=== PATIENT | female | born 1995 | race African-American/Black ===

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

== ENCOUNTER 2018-05-19 13:24 | Inpatient (IN) | payer OTHER ==
--- NOTE | 2018-05-19 14:31 | PDOC ---
History of Present Illness - General Chief Complaint: Revisit, Lab Variance Stated Complaint: PCP SENT Time Seen by Provider: 05/19/18 14:30 History Source: Patient - History of Present Illness Initial Comments: 05/24/18 16:51 The patient is a 23 year old female with a PMH of rhabdomyolysis who presents to the ED after a CPK reading of 30,000 @ her PMD's office. Was being evaluated in her PMD's office for 1 week h/o body aches mostly on her R side including her torso and hips. H/o viral URI symptoms and dark urine. Denies any recent trauma or immobilization. States she was supposed to follow up with a truant officer after her last elevated CPK reading, however she never did so. The patient denies chest pain, shortness of breath, headache, dizziness, fever, chills, nausea, vomit, diarrhea and constipation. NKDA Surgical: none reported As per EMR, patient was evaluated in our ED in 2017 for B/L LE weakness, CPK reading of 30,096. Patient admitted to hospital for further evaluation, labs negative for Sickle Cell trait, elevated RUPAL. Past History - Past Medical History Allergies/Adverse Reactions: Allergies Allergy/AdvReac Type Severity Reaction Status Date / Time No Known Allergies Allergy Verified 05/19/18 13:33 Home Medications: Ambulatory Orders NK [No Known Home Medication] 05/20/16 COPD: No Other medical history: rhabdo - Suicide/Smoking/Psychosocial Hx Smoking History: Never smoked Hx Alcohol Use: No Drug/Substance Use Hx: No Review of Systems - Review of Systems Constitutional: No: Chills, Fever HEENTM: No: Recent change in vision, Hearing Loss Respiratory: No: Cough, Shortness of Breath Cardiac (ROS): No: Chest Pain, Lightheadedness, Palpitations, Syncope ABD/GI: No: Constipated, Diarrhea, Nausea, Vomiting : Yes: Other (dark colored urine) Musculoskeletal: Yes: Muscle Pain Neurological: No: Headache, Numbness, Paresthesia, Tingling, Weakness *Physical Exam - Vital Signs Last Vital Signs Temp Pulse Resp BP Pulse Ox 98.4 F 84 18 116/79 98 05/19/18 13:33 05/19/18 13:33 05/19/18 13:33 05/19/18 13:33 05/19/18 13:33 - Physical Exam General Appearance: Yes: Nourished, Appropriately Dressed HEENT: positive: Normal Voice, Hearing Grossly Normal Neck: positive: Trachea midline, Supple Respiratory/Chest: positive: Lungs Clear, Normal Breath Sounds Cardiovascular: positive: Regular Rate, S1, S2 Vascular Pulses: Dorsalis-Pedis (R): 2+, Doralis-Pedis (L): 2+ Gastrointestinal/Abdominal: positive: Normal Bowel Sounds, Soft Musculoskeletal: negative: CVA Tenderness (R), CVA Tenderness (L) Extremity: positive: Normal Capillary Refill, Normal Inspection Integumentary: positive: Normal Color, Dry, Warm Neurologic: positive: tar leveler II-XII NML intact, Fully Oriented, Alert Moderate Sedation - Procedure Monitoring Vital Signs: Procedure Monitoring Vital Signs Temperature 98.4 F 05/19/18 13:33 Pulse Rate 84 05/19/18 13:33 Respiratory Rate 18 05/19/18 13:33 Blood Pressure 116/79 05/19/18 13:33 O2 Sat by Pulse Oximetry (%) 98 05/19/18 13:33 ED Treatment Course - LABORATORY CBC & Chemistry Diagram: 05/24/18 09:00 05/24/18 09:00 Medical Decision Making - Medical Decision Making 05/24/18 17:03 23 year old female with PMH of rhabdomyolysis presents w/elevated CPK reading from PMD's office. VS unremarkable. Will order labs. Consults ordered prior to patient's arrival in ED. Patient discussed with Dr. Murray who was aware of patient. Patient admitted to inpatient medicine service for further evaluation. *DC/Admit/Observation/Transfer Diagnosis at time of Disposition: Rhabdomyolysis Qualifiers: Rhabdomyolysis type: non-traumatic Qualified Code(s): M62.82 - Rhabdomyolysis - Discharge Dispostion Condition at time of disposition: Fair Decision to Admit order: Yes - Referrals - Patient Instructions - Post Discharge Activity
[2018-05-19] MEDS ORDERED: SODIUM CHLORIDE 0.9% 500 ML INFUS.BAG IV ONE ×2 (14:32→19:21)
--- NOTE | 2018-05-19 15:21 | CONSULT ---
Consult Consult Specialty:: Nephrology Reason for Consultation:: rhabdo - History of Present Illness Chief Complaint: sent in from PMD for elevated CPK History of Present Illness: Pti s a 23year old female with pmhx of rhabdo wo was sent in from PMD for levated CPK. She presented to her primary for back and thigh pain. She was found to have a cpk of about 27,000. She did have a viral syndrome a week ago. She had a few drinks on Tuesday for her birthday. She denies blood in the urine. She denies shortness of breath. She denies flank pain. She denies nsaid use. She denies drug use. - History Source History Provided By: Patient, Medical Record - Past Medical History ...LMP: 05/09/16 Musculoskeletal: Yes: Other (rhabdo) - Past Surgical History Past Surgical History: Yes: None - Alcohol/Substance Use Hx Alcohol Use: No History of Substance Use: reports: None - Smoking History Smoking history: Never smoked - Social History Usual Living Arrangement: Alone ADL: Independent Occupation: college student History of Recent Travel: No Home Medications - Allergies Allergies/Adverse Reactions: Allergies Allergy/AdvReac Type Severity Reaction Status Date / Time No Known Allergies Allergy Verified 05/19/18 13:33 - Home Medications Home Medications: Ambulatory Orders NK [No Known Home Medication] 05/20/16 Family Disease History - Family Disease History Family Disease History: Other: Father (healthy), Mother (healthy) Review of Systems - Review of Systems Constitutional: reports: Malaise. denies: Chills, Fever Eyes: reports: No Symptoms HENT: reports: No Symptoms Neck: reports: No Symptoms Cardiovascular: reports: No Symptoms Respiratory: reports: No Symptoms Gastrointestinal: reports: No Symptoms Genitourinary: reports: No Symptoms Musculoskeletal: reports: Back Pain, Extremity Pain Neurological: reports: No Symptoms Endocrine: reports: No Symptoms Hematology/Lymphatic: reports: No Symptoms Psychiatric: reports: No Symptoms Physical Exam Vital Signs: Vital Signs Temperature 98.4 F 05/19/18 13:33 Pulse Rate 84 05/19/18 13:33 Respiratory Rate 18 05/19/18 13:33 Blood Pressure 116/79 05/19/18 13:33 O2 Sat by Pulse Oximetry (%) 98 05/19/18 13:33 Constitutional: Yes: Calm Eyes: Yes: Conjunctiva Clear HENT: Yes: Atraumatic Neck: Yes: Supple Cardiovascular: Yes: S1, S2 Respiratory: Yes: CTA Bilaterally Gastrointestinal: Yes: Normal Bowel Sounds, Soft Renal/: Yes: WNL Musculoskeletal: Yes: WNL Extremities: Yes: WNL Edema: No Neurological: Yes: Oriented Psychiatric: Yes: Oriented Labs: Laboratory Tests 05/21/16 05/21/16 05/22/16 00:17 06:15 07:25 Creatine Kinase 88921 H 70202 H 11845 H D IDLIP Screen DILIP Homogeneous Pattern 05/23/16 05/24/16 05/24/16 07:00 05:45 15:50 Creatine Kinase 72143 H D 75710 H DILIP Screen Positive H DILIP Homogeneous Pattern 1:80 06/03/16 07:25 Creatine Kinase 740 H D DILIP Screen DILIP Homogeneous Pattern Problem List - Problems (1) Hematuria, microscopic Code(s): R31.2 - OTHER MICROSCOPIC HEMATURIA * DO NOT USE * (2) Rhabdomyolysis Code(s): M62.82 - RHABDOMYOLYSIS (3) Transaminitis Code(s): R74.0 - NONSPEC ELEV OF LEVELS OF TRANSAMNS & LACTIC ACID DEHYDRGNSE Assessment/Plan Impression 1. rhabdomyolosis 2. microscopic hematuria 3. hx proteinuria 4. recent viral syndrome 5. hx transaminitis 6. hx of positive dilip Plan - check cmp - check cpk - send ua with micro - start fluids - cpk as outpt was 27k - rheum eval - discussed with medical team - monitor lytes and cpk closely
[2018-05-19 17:23] LABS: BASO % 0.2 % (0-2.0); EOS % 0.6 % (0-4.5); HEMATOCRIT 33.8 % (32.4-45.2); HEMOGLOBIN 11.8 GM/dL (10.7-15.3); LYMPH % 30.2 % (8-40); MCH 31.2 pg (25.7-33.7); MCHC 34.8 g/dl (32.0-36.0); MEAN CELL VOLUME 89.4 fl (80-96); MEAN PLT VOLUME 8.5 fl (7.5-11.1); PLATELET COUNT 283 K/MM3 (134-434); RBC 3.78 M/mm3 (3.60-5.2); RDW 13.7 % (11.6-15.6)
--- NOTE | 2018-05-19 17:25 | PDOC ---
Attending Attestation - HPI HPI: 05/19/18 17:46 The patient is a 23 year old female, with a significant PMH of rhabdomyolysis, who presents to the emergency department with elevated CPK lab readings. The patient endorses right sided muscle aches and dark colored urine for the past few days. The patient also states she has been having mild cold-like symptoms. The patient states her symptoms are similar to her prior presentation with rhabdomyolysis. The patient denies any recent injuries or trauma. The patient denies chest pain, shortness of breath, headache and dizziness. Denies fever, chills, nausea, vomit, diarrhea and constipation. Denies dysuria, frequency, urgency and hematuria. Allergies: NKA Documentation prepared by Saul Conklin, acting as senior medical billing specialist for Silke Martinez MD. - Physicial Exam PE: 05/19/18 17:46 GENERAL: The patient is in no acute distress. HEAD: Normal with no signs of trauma. EYES: PERRLA, EOMI, sclera anicteric, conjunctiva clear. ENT: Ears normal, nares patent, oropharynx clear without exudates. Moist mucous membranes. NECK: Normal range of motion, supple without lymphadenopathy, JVD, or masses. LUNGS: Breath sounds equal, clear to auscultation bilaterally. No wheezes, and no crackles. HEART:Regular rate and rhythm, normal S1 and S2 without murmur, rub or gallop. ABDOMEN: Soft, nontender, normoactive bowel sounds. No guarding, no rebound. No masses palpable. EXTREMITIES: Normal range of motion, no edema. No clubbing or cyanosis. No erythema, or tenderness. NEUROLOGICAL: Cranial nerves II through XII grossly intact. Normal speech. No focal neurological deficits. MUSCULOSKELETAL: Back non-tender to palpation, no CVA tenderness SKIN: Warm, Dry, normal turgor, no rashes or lesions noted. <Saul Conklin - Last Filed: 05/19/18 17:46> - Resident Resident Name: Kyra Sotelo - ED Attending Attestation I have performed the following: I have examined & evaluated the patient, The case was reviewed & discussed with the resident, I agree w/resident's findings & plan, Exceptions are as noted - Medical Decision Making 05/20/18 19:01 Labs pending IV fluids initiated based on outpatient labs Consults were called prior to this patient's arrival in the ER Pt admitted to Dr Murray 05/20/18 19:02 Laboratory Tests 05/19/18 05/19/18 17:00 17:04 WBC 5.0 Hgb 11.8 Hct 33.8 D Plt Count 283 Sodium 137 Potassium 4.2 Chloride 104 Carbon Dioxide 26 BUN 12 Creatinine 0.6 Random Glucose 76 CPK had to be added, it was not originally sent Will continue IV hydration <Silke Martinez - Last Filed: 05/20/18 19:04>
--- NOTE | 2018-05-19 17:49 | HP ---
Admitting History and Physical - Primary Care Physician PCP: Manuel Espinoza - Admission Chief Complaint: Rhabdomyolysis History of Present Illness: 23 year old female pmh of rhabdomyolysis presents with generalized muscle aches. Pt reports onset of aching pain 1 week ago. She describes the muscle ache is mostly from her hips to upper body/chest. Pt reports she had an URI on . Subsequently developed above symptoms. Pt reports she went out drinking 3 days ago, consumed 3-4 drinks which led her to feel worse. Pt therefore went to see her PCP, and outpt CPK level was found to be 30k. Of note, pt was admitted 05/2016 for similar presentation. At that time, no cause was found, pt was managed conservatively and improved. Sickle cell trait was neg, RUPAL elevated in 2017. Pt was advised to follow up with Rheum outpt however pt cannot recall following up. Otherwise, pt denies any chest pain, sob, lightheadedness, seizure, fever/chills, rash, abd pain, n/v/d, dysuria, dark urine, use of herbal supplements, use of illicit drugs, use of dietary supplements, recent trauma, excessive exercise, or recent travel. History Source: Patient, Medical Record Limitations to Obtaining History: No Limitations - Past Medical History ...: No Musculoskeletal: Yes: Other (rhabdomyolysis) - Past Surgical History Past Surgical History: Yes: None - Smoking History Smoking history: Never smoked Have you smoked in the past 12 months: No - Alcohol/Substance Use Hx Alcohol Use: No History of Substance Use: reports: None - Social History ADL: Independent Occupation: college student History of Recent Travel: No Home Medications - Allergies Allergies/Adverse Reactions: Allergies Allergy/AdvReac Type Severity Reaction Status Date / Time No Known Allergies Allergy Verified 05/19/18 13:33 - Home Medications Home Medications: Ambulatory Orders NK [No Known Home Medication] 05/20/16 Family Disease History - Family Disease History Family History: Unremarkable Review of Systems Findings/Remarks: as per hpi Physical Examination Vital Signs: Vital Signs Temperature 98.4 F 05/19/18 13:33 Pulse Rate 84 05/19/18 13:33 Respiratory Rate 18 05/19/18 13:33 Blood Pressure 116/79 05/19/18 13:33 O2 Sat by Pulse Oximetry (%) 98 05/19/18 13:33 Constitutional: Yes: Well Nourished, No Distress, Calm Cardiovascular: Yes: WNL, Regular Rate and Rhythm. No: Murmur Respiratory: Yes: WNL, Regular, CTA Bilaterally. No: Accessory Muscle Use, Tachypnea, Wheezes Gastrointestinal: Yes: WNL, Normal Bowel Sounds, Soft. No: Distention, Tenderness, Vomiting Renal/: Yes: WNL Extremities: Yes: WNL Edema: No Neurological: Yes: WNL, Alert, Oriented Psychiatric: Yes: WNL, Alert, Oriented Labs: CBC, BMP 05/19/18 17:00 Problem List - Problems (1) Rhabdomyolysis Assessment/Plan: non exertional/non traumatic idiopathic, similar episode last admission as well post URI r/o infectious, drug-induced, inflammatory blood/urine/nasopharyngeal cultures ordered EBV, coxsackie ab ordered RUPAL, hiv, tsh, carboxyhg ordered trop, ekg ordered urine na/cr/k, tox screen ordered muscle biopsy ordered NS 200ml/hr trend CPK rheum/nephrology consulted Code(s): M62.82 - RHABDOMYOLYSIS Qualifiers: Rhabdomyolysis type: non-traumatic Qualified Code(s): M62.82 - Rhabdomyolysis (2) Transaminitis Assessment/Plan: suspect reactive monitor trend Code(s): R74.0 - NONSPEC ELEV OF LEVELS OF TRANSAMNS & LACTIC ACID DEHYDRGNSE
[2018-05-19 17:55] LABS: ALBUMIN 3.7 g/dl (3.4-5.0); ALK PHOS 54 U/L (45-117); ANION GAP 6 MMOL/L (8-16); BILIRUBIN,TOTAL 0.3 mg/dL (0.2-1); BLOOD UREA NITROGEN 12 mg/dL (7-18); CALCIUM 9.3 mg/dL (8.5-10.1); CHLORIDE 104 mmol/L (98-107); CO2 26 mmol/L (21-32); CREATININE 0.6 mg/dL (0.55-1.3); GLUCOSE,RANDOM 76 mg/dL (74-106); POTASSIUM 4.2 mmol/L (3.5-5.1); SGOT/AST 215 U/L (15-37); SGPT/ALT 93 U/L (13-61); SODIUM 137 mmol/L (136-145)
[2018-05-19 19:48] LABS: ERYTHROCYTE SEDIMENTATION RATE 14 mm/hr (0-20)
[2018-05-19] MEDS: SODIUM CHLORIDE 1,000 ML IV SCH (20:01)
[2018-05-19] MEDS ORDERED: HEPARIN NA (PORCINE) 5,000 UNITS/ML 1ML VIAL SQ SCH (22:00)
[2018-05-20] MEDS: SODIUM CHLORIDE 1,000 ML IV SCH ×4 (00:25→17:27)
[2018-05-20 06:01] LABS: URINE APPEARANCE CLEAR; URINE BILIRUBIN NEGATIVE (<2.0 mg/dL); URINE COLOR STRAW; URINE GLUCOSE (UA) NEGATIVE (NEGATIVE); URINE KETONE NEGATIVE (NEGATIVE); URINE LEUK ESTERASE NEGATIVE (NEGATIVE); URINE NITRITE NEGATIVE (NEGATIVE); URINE PROTEIN NEGATIVE (NEGATIVE); URINE UROBILINOGEN NEGATIVE mg/dL (0.2-1.0)
[2018-05-20 06:20] LABS: COCAINE, UR NEGATIVE ng/ml (CUTOFF=300); METHADONE, UR NEGATIVE ng/ml (CUTOFF=300); OPIATES, URI NEGATIVE ng/ml (CUTOFF=300); PHENCYCLIDINE,URINE NEGATIVE ng/ml (CUTOFF=25); URINE AMPHETAMINES NEGATIVE ng/ml (CUTOFF=500); URINE BARBITURATES NEGATIVE ng/ml (CUTOFF=200); URINE BENZODIAZEPINES NEGATIVE ng/ml (CUTOFF=200)
[2018-05-20 08:35] LABS: BASO % 0.5 % (0-2.0); EOS % 1.6 % (0-4.5); HEMOGLOBIN 10.9 GM/dL (10.7-15.3); LYMPH % 47.7 % (8-40); MCH 30.8 pg (25.7-33.7); MCHC 34.2 g/dl (32.0-36.0); MEAN CELL VOLUME 89.9 fl (80-96); MEAN PLT VOLUME 8.7 fl (7.5-11.1); MONO % 8.5 % (3.8-10.2); NEUT % 41.7 % (42.8-82.8); PLATELET COUNT 275 K/MM3 (134-434); RBC 3.56 M/mm3 (3.60-5.2); RDW 13.7 % (11.6-15.6); WHITE BLOOD COUNT 3.2 K/mm3 (4.0-10.0)
--- NOTE | 2018-05-20 08:40 | EKG ---
Test Reason : Blood Pressure : / mmHG Vent. Rate : 059 BPM Atrial Rate : 059 BPM P-R Int : 130 ms QRS Dur : 090 ms QT Int : 412 ms P-R-T Axes : 048 078 067 degrees QTc Int : 407 ms SINUS BRADYCARDIA WITH SINUS ARRHYTHMIA OTHERWISE NORMAL ECG WHEN COMPARED WITH ECG OF 21-MAY-2016 03:10, NO SIGNIFICANT CHANGE WAS FOUND Confirmed by VERONICA TOBAR, NOMAN ([id number]) on 05/20/2018 8:40:39 AM Referred By: Confirmed By:NOMAN MARTIN MD
[2018-05-20 09:04] LABS: ALBUMIN 3.4 g/dl (3.4-5.0); ALK PHOS 50 U/L (45-117); ANION GAP 5 MMOL/L (8-16); BILIRUBIN,TOTAL 0.3 mg/dL (0.2-1); BLOOD UREA NITROGEN 8 mg/dL (7-18); CALCIUM 8.7 mg/dL (8.5-10.1); CHLORIDE 109 mmol/L (98-107); CO2 26 mmol/L (21-32); CREATININE 0.6 mg/dL (0.55-1.3); GLUCOSE,RANDOM 80 mg/dL (74-106); MAGNESIUM 1.8 mg/dL (1.8-2.4); PHOSPHOROUS 3.7 mg/dL (2.5-4.9); POTASSIUM 4.4 mmol/L (3.5-5.1); SGOT/AST 182 U/L (15-37); SGPT/ALT 86 U/L (13-61); SODIUM 140 mmol/L (136-145); TOT PROT 6.4 g/dl (6.4-8.2)
--- NOTE | 2018-05-20 11:35 | PN ---
Progress Note (short form) - Note Progress Note: RENAL Pt has rhabdo after experiencing some muscle pain. She denies drug use, medication use or strenuous exercise. Also denies any family or personal history of autoimmune disease She feels well today and is making a lot of urine Last Vital Signs Temp Pulse Resp BP Pulse Ox 98.0 F 83 18 105/57 L 98 05/20/18 05:57 05/20/18 10:00 05/20/18 10:00 05/20/18 10:00 05/20/18 06:00 lungs clear cvs s1s2 rr abd soft ext no edema neuro a+ox3 CBC, BMP 05/20/18 07:45 05/20/18 07:45 Current Medications Generic Name Dose Route Start Last Admin Trade Name Freq PRN Reason Stop Dose Admin Sodium Chloride 1,000 mls @ 200 mls/hr 05/19/18 17:45 05/20/18 06:21 Normal Saline - IV 200 mls/hr ASDIR FABRICIO Administration Impression rhabdomyolosis of unknown etiology recent viral syndrome hx transaminitis likely due to rhabdo hx of positive dilip Plan rheum eval possible muscle biopsy anti nathaniel, aldolase MV
[2018-05-20 13:56] LABS: URINE POTASSIUM 26.7 MMOL/L (25-125)
--- NOTE | 2018-05-20 14:22 | PN ---
Progress Note, Physician Chief Complaint: Miss Castellanos is still having muscle aches, unchanged. No cp, sob, n/v. - Current Medication List Current Medications: Active Medications Sodium Chloride (Normal Saline -) 1,000 mls @ 200 mls/hr IV ASDIR FABRICIO Last Admin: 05/20/18 13:59 Dose: 200 mls/hr - Objective Vital Signs: Vital Signs Temperature 36.7 C 05/20/18 05:57 Pulse Rate 83 05/20/18 10:00 Respiratory Rate 18 05/20/18 10:00 Blood Pressure 105/57 L 05/20/18 10:00 O2 Sat by Pulse Oximetry (%) 98 05/20/18 06:00 Constitutional: Yes: No Distress, Calm, Thin Cardiovascular: Yes: Regular Rate and Rhythm. No: Gallop, Murmur, Rub Respiratory: Yes: Regular, CTA Bilaterally. No: Rales, Rhonchi, Wheezes Gastrointestinal: Yes: Normal Bowel Sounds, Soft. No: Distention, Tenderness Extremities: Yes: WNL Edema: No Labs: CBC, BMP 05/20/18 07:45 05/20/18 07:45 Problem List - Problems (1) Rhabdomyolysis Assessment/Plan: -appreciate nephrology assistance -rheumatology consulted -continue IVF -daily CK, improving Code(s): M62.82 - RHABDOMYOLYSIS Qualifiers: Rhabdomyolysis type: non-traumatic Qualified Code(s): M62.82 - Rhabdomyolysis (2) Transaminitis Assessment/Plan: -improving -monitor -will recheck hepatitis panel, has Hep B immunity but will check for Hep A and C Code(s): R74.0 - NONSPEC ELEV OF LEVELS OF TRANSAMNS & LACTIC ACID DEHYDRGNSE
--- NOTE | 2018-05-20 22:10 | CONSULT ---
Consult Consult Specialty:: Rheumatology - History of Present Illness History of Present Illness: 23 year old female admitted with Rhabdomyolysis. On 05/20/16 the patient was admitted with Rhabdomyolysis without any apparent triggering factor. The peak CPK was 60,780. On this occasion she reports that on 05/09/18 she developed an URI. On 05/15/18 she had 3 or 4 hard liquor drinks. She then developed myalia in thighs followed by myalgia in shoulders and back. Laboratory work-up by her PCP revealed CK of 30,000. Since admission she had only slight improvement. Laboratory work-up on admission revealed WBC 5.0 (today 3.2), ESR 14, CK >68912 (today 18,700). ASt 215 and ALT 93. SMA-7 and urinalysis were normal. On the previous admission RUPAL was 1:80, Anti-DNAds, anti-Sm, anti-[employer] MANAGER and transglutaminase Ab were all negative. IgG4 was normal (17) myalgia and elevated CPK. HPI. The patient reports a 1 week history of myalgia in thighs, mainly in anterior aspect and related to activity. The pain was progressive and later on she developed mild pain in arms. She denies triggering factors such as trauma, exercise, medications or drugs. She denies arthralgia, skin rash, oral ulcers , shortness of breath, cough, abdominal pain or fever. She was found to have an elevated CPK by her PCP and was referred for admission. In the hospital [place] [address] [place] [address]. Creatinine was 0.5, AST 169 and ALT 49. UA on admission had protein 1+ and blood 1+ and on 05/24: blood 3+. - Past Medical History ...LMP: 05/09/16 ...: No Musculoskeletal: Yes: Other (rhabdomyolysis) - Past Surgical History Past Surgical History: Yes: None - Alcohol/Substance Use Hx Alcohol Use: No History of Substance Use: reports: None - Smoking History Smoking history: Never smoked Have you smoked in the past 12 months: No - Social History Usual Living Arrangement: Alone ADL: Independent Occupation: college student History of Recent Travel: No Home Medications - Allergies Allergies/Adverse Reactions: Allergies Allergy/AdvReac Type Severity Reaction Status Date / Time No Known Allergies Allergy Verified 05/19/18 13:33 - Home Medications Home Medications: Ambulatory Orders NK [No Known Home Medication] 05/20/16 Family Disease History - Family Disease History Family Disease History: Other: Father (healthy), Mother (healthy) Review of Systems - Review of Systems Constitutional: reports: No Symptoms Eyes: reports: No Symptoms HENT: reports: No Symptoms Neck: reports: No Symptoms Cardiovascular: reports: No Symptoms Respiratory: reports: No Symptoms Gastrointestinal: reports: No Symptoms Genitourinary: reports: No Symptoms Musculoskeletal: reports: Other (See HPI) Physical Exam Vital Signs: Vital Signs Temperature 99.1 F 05/20/18 18:00 Pulse Rate 73 05/20/18 18:00 Respiratory Rate 20 05/20/18 18:00 Blood Pressure 101/54 L 05/20/18 18:00 O2 Sat by Pulse Oximetry (%) 98 05/20/18 06:00 Constitutional: Yes: No Distress Eyes: Yes: WNL HENT: Yes: WNL Neck: Yes: WNL Cardiovascular: Yes: WNL Respiratory: Yes: WNL Gastrointestinal: Yes: WNL Musculoskeletal: Yes: Other (No active joints. Muscle strength was normal and no muscle tenderness.) Labs: CBC, BMP 05/20/18 07:45 05/20/18 07:45 Laboratory Tests 05/19/18 05/19/18 05/20/18 17:00 17:04 00:46 ESR 14 Calcium 9.3 Phosphorus Magnesium Total Bilirubin 0.3 AST 215 H ALT 93 H Alkaline Phosphatase 54 Creatine Kinase > 34363 H C-Reactive Protein < 0.3 TSH 0.66 Urine Color Straw Urine Appearance Clear Urine pH 7.0 Ur Specific [place] 1.010 Urine Protein Negative Urine Glucose (UA) Negative Urine Ketones Negative Urine Blood Negative Urine Nitrite Negative Urine Bilirubin Negative Urine Urobilinogen Negative Ur Leukocyte Esterase Negative 05/20/18 05/20/18 07:45 07:45 ESR Calcium 8.7 Phosphorus 3.7 Magnesium 1.8 Total Bilirubin 0.3 AST 182 H ALT 86 H Alkaline Phosphatase Creatine Kinase 06705 H C-Reactive Protein TSH Urine Color Urine Appearance Urine pH Ur Specific [place] Urine Protein Urine Glucose (UA) Urine Ketones Urine Blood Urine Nitrite Urine Bilirubin Urine Urobilinogen Ur Leukocyte Esterase Problem List - Problems (1) Rhabdomyolysis Assessment/Plan: Recurrent Rhabdomyolysis. Both episodes happened few days after her birthday. On this occasion the patient reports having few alcoholic drinks. A possibility is that alcohol consumption triggered the disease. No obvious other triggering factors. Plan: Continue conservative treatment. In the future avoid drinking alcohol. Code(s): M62.82 - RHABDOMYOLYSIS Qualifiers: Rhabdomyolysis type: non-traumatic Qualified Code(s): M62.82 - Rhabdomyolysis
[2018-05-21 09:19] LABS: BASO % 0.6 % (0-2.0); EOS % 3.4 % (0-4.5); HEMATOCRIT 30.2 % (32.4-45.2); HEMOGLOBIN 10.3 GM/dL (10.7-15.3); LYMPH % 39.7 % (8-40); MCH 30.9 pg (25.7-33.7); MCHC 34.3 g/dl (32.0-36.0); MEAN CELL VOLUME 90.2 fl (80-96); MONO % 7.8 % (3.8-10.2); NEUT % 48.5 % (42.8-82.8); PLATELET COUNT 275 K/MM3 (134-434); RBC 3.34 M/mm3 (3.60-5.2); RDW 13.8 % (11.6-15.6); WHITE BLOOD COUNT 3.7 K/mm3 (4.0-10.0)
[2018-05-21] MEDS: SODIUM CHLORIDE 1,000 ML IV SCH ×3 (09:24→21:38)
[2018-05-21 09:46] LABS: ALBUMIN 3.1 g/dl (3.4-5.0); BILIRUBIN,DIRECT 0.1 mg/dL (0.0-0.2); BILIRUBIN,TOTAL 0.5 mg/dL (0.2-1); TOT PROT 5.7 g/dl (6.4-8.2)
[2018-05-21 10:15] LABS: ANION GAP 7 MMOL/L (8-16); BLOOD UREA NITROGEN 8 mg/dL (7-18); CALCIUM 8.4 mg/dL (8.5-10.1); CHLORIDE 111 mmol/L (98-107); CO2 24 mmol/L (21-32); CREATININE 0.6 mg/dL (0.55-1.3); GLUCOSE,RANDOM 110 mg/dL (74-106); MAGNESIUM 1.9 mg/dL (1.8-2.4); PHOSPHOROUS 3.6 mg/dL (2.5-4.9); POTASSIUM 3.7 mmol/L (3.5-5.1); SODIUM 142 mmol/L (136-145)
--- NOTE | 2018-05-21 11:45 | PN ---
Progress Note (short form) - Note Progress Note: RENAL no new complaints Rhabdo occured after drinking for her birthday Last Vital Signs Temp Pulse Resp BP Pulse Ox 97.9 F 88 20 98/52 L 95 05/21/18 11:00 05/21/18 11:00 05/21/18 11:00 05/21/18 11:00 05/21/18 09:00 lungs clear cvs s1s2 rr abd soft ext no edema neuro a+ox3 Current Medications Generic Name Dose Route Start Last Admin Trade Name Freq PRN Reason Stop Dose Admin Sodium Chloride 1,000 mls @ 200 mls/hr 05/19/18 17:45 05/21/18 09:24 Normal Saline - IV 200 mls/hr ASDIR FABRICIO Administration CBC, BMP 05/21/18 08:30 05/21/18 08:30 Impression rhabdomyolosis of unknown etiology perhaps related to alcohol recent viral syndrome hx transaminitis likely due to rhabdo hx of positive dilip Plan rheum eval noted would do muscle biopsy echocardiogram MV
--- NOTE | 2018-05-21 12:16 | PN ---
Progress Note, Physician Chief Complaint: Miss Castellanos says her muscle aches are improving. No cp, sob, n/v. - Current Medication List Current Medications: Active Medications Sodium Chloride (Normal Saline -) 1,000 mls @ 200 mls/hr IV ASDIR FABRICIO Last Admin: 05/21/18 09:24 Dose: 200 mls/hr - Objective Vital Signs: Vital Signs Temperature 36.6 C 05/21/18 11:00 Pulse Rate 88 05/21/18 11:00 Respiratory Rate 20 05/21/18 11:00 Blood Pressure 98/52 L 05/21/18 11:00 O2 Sat by Pulse Oximetry (%) 95 05/21/18 09:00 Constitutional: Yes: No Distress, Calm, Thin Cardiovascular: Yes: Regular Rate and Rhythm. No: Gallop, Murmur, Rub Respiratory: Yes: Regular, CTA Bilaterally. No: Rales, Rhonchi, Wheezes Gastrointestinal: Yes: Normal Bowel Sounds, Soft. No: Distention, Tenderness Extremities: Yes: WNL Edema: No Labs: CBC, BMP 05/21/18 08:30 05/21/18 08:30 Problem List - Problems (1) Rhabdomyolysis Code(s): M62.82 - RHABDOMYOLYSIS Qualifiers: Rhabdomyolysis type: non-traumatic Qualified Code(s): M62.82 - Rhabdomyolysis (2) Transaminitis Code(s): R74.0 - NONSPEC ELEV OF LEVELS OF TRANSAMNS & LACTIC ACID DEHYDRGNSE Assessment/Plan (1) Rhabdomyolysis Assessment/Plan: -case d/w nDr Borden -continue IVF, CPK improving -muscle biopsy ordered -ECHO ordered per nephrology recommendation -rheumatology note reviewed Code(s): M62.82 - RHABDOMYOLYSIS Qualifiers: Rhabdomyolysis type: non-traumatic Qualified Code(s): M62.82 - Rhabdomyolysis (2) Transaminitis Assessment/Plan: -improving -monitor -acute hepatitis panel pending Code(s): R74.0 - NONSPEC ELEV OF LEVELS OF TRANSAMNS & LACTIC ACID DEHYDRGNSE
[2018-05-22 07:24] LABS: BASO % 0.5 % (0-2.0); HEMATOCRIT 30.4 % (32.4-45.2); HEMOGLOBIN 9.6 GM/dL (10.7-15.3); MCHC 31.7 g/dl (32.0-36.0); MEAN CELL VOLUME 91.5 fl (80-96); MEAN PLT VOLUME 8.5 fl (7.5-11.1); MONO % 9.4 % (3.8-10.2); NEUT % 47.1 % (42.8-82.8); PLATELET COUNT 248 K/MM3 (134-434); RBC 3.32 M/mm3 (3.60-5.2); RDW 13.5 % (11.6-15.6); WHITE BLOOD COUNT 3.7 K/mm3 (4.0-10.0)
[2018-05-22] MEDS: SODIUM CHLORIDE 1,000 ML IV SCH ×2 (07:50→18:06)
[2018-05-22 09:18] LABS: ALK PHOS 42 U/L (45-117); ANION GAP 8 MMOL/L (8-16); BILIRUBIN,TOTAL 0.3 mg/dL (0.2-1); BLOOD UREA NITROGEN 6 mg/dL (7-18); CALCIUM 8.3 mg/dL (8.5-10.1); CHLORIDE 110 mmol/L (98-107); CO2 23 mmol/L (21-32); CREATININE 0.5 mg/dL (0.55-1.3); GLUCOSE,RANDOM 78 mg/dL (74-106); MAGNESIUM 1.8 mg/dL (1.8-2.4); PHOSPHOROUS 3.7 mg/dL (2.5-4.9); POTASSIUM 3.9 mmol/L (3.5-5.1); SGOT/AST 113 U/L (15-37); SGPT/ALT 82 U/L (13-61); SODIUM 141 mmol/L (136-145); TOT PROT 5.6 g/dl (6.4-8.2)
--- NOTE | 2018-05-22 10:25 | PN ---
Progress Note, Physician Chief Complaint: Pt lying in bed in no acute distress. Reports feeling better. denies any chest pain, sob, n/v/d - Current Medication List Current Medications: Active Medications Sodium Chloride (Normal Saline -) 1,000 mls @ 200 mls/hr IV ASDIR FABRICIO Last Admin: 05/21/18 21:38 Dose: 200 mls/hr - Objective Vital Signs: Vital Signs Temperature 98.6 F 05/22/18 06:42 Pulse Rate 66 05/22/18 06:42 Respiratory Rate 20 05/22/18 06:42 Blood Pressure 109/64 05/22/18 06:42 O2 Sat by Pulse Oximetry (%) 95 05/22/18 08:23 Constitutional: Yes: No Distress, Calm, Thin Cardiovascular: Yes: WNL, Regular Rate and Rhythm. No: Murmur Respiratory: Yes: WNL, Regular, CTA Bilaterally. No: Accessory Muscle Use, SOB , Tachypnea, Wheezes Gastrointestinal: Yes: WNL, Normal Bowel Sounds, Soft. No: Distention, Tenderness Genitourinary: Yes: WNL Musculoskeletal: Yes: WNL Extremities: Yes: WNL Edema: No Neurological: Yes: WNL, Alert, Oriented Psychiatric: Yes: WNL, Alert, Oriented Labs: CBC, BMP 05/22/18 06:45 05/22/18 06:45 Assessment/Plan (1) Rhabdomyolysis Assessment/Plan: recurrent, no identifiable cause possible 2/2 uri, alcohol intake CPK improving continue IVF muscle biopsy pending, surgery consulted echo pending rheum consult appreciated nephrology following Code(s): M62.82 - RHABDOMYOLYSIS Qualifiers: Rhabdomyolysis type: non-traumatic Qualified Code(s): M62.82 - Rhabdomyolysis (2) Transaminitis Assessment/Plan: improving acute hepatitis panel pending Code(s): R74.0 - NONSPEC ELEV OF LEVELS OF TRANSAMNS & LACTIC ACID DEHYDRGNSE
[2018-05-22 11:53] VITALS: BMI 19.1
--- NOTE | 2018-05-22 14:41 | ECHO ---
Name: FRANKLIN LOMELI Exam:Adult Echocardiogram Study Date: 05/22/2018 01:21 PM Age: 23 yrs Reason For Study: RHABDO Height: 65 in Weight: 115 lb BSA: 1.6 m2 MMode/2D Measurements & Calculations IVSd: 0.85 cm ACS: 1.9 cm LVIDd: 3.4 cm LVIDs: 2.3 cm LVPWd: 1.1 cm EDV(Teich): 47.2 ml ESV(Teich): 18.4 ml Doppler Measurements & Calculations TR max rupa: 203.8 cm/sec Med Peak E' Rupa: 10.9 cm/sec TR max P.0 mmHg Lat Peak E' Rupa: 10.1 cm/sec Procedure A complete two-dimensional transthoracic echocardiogram was performed (2D, M-mode, Doppler and color flow Doppler). Left Ventricle The left ventricle is normal in size. Left ventricular systolic function is normal. Ejection Fraction = 60- 65%. No regional wall motion abnormalities noted. Right Ventricle The right ventricle is normal size. The right ventricular systolic function is normal. RV systolic TD I is 14 cm/s. Atria The left atrial size is normal. Right atrial size is normal. Mitral Valve The mitral valve is normal in structure and function. There is mild mitral regurgitation. Tricuspid Valve The tricuspid valve is normal in structure and function. There is mild tricuspid regurgitation. Right ventricular systolic pressure is normal. Aortic Valve There is mild aortic sclerosis.;. No aortic regurgitation is present. Pulmonic Valve The pulmonic valve is not well visualized. Great Vessels The aortic root is normal size. Pericardium/Pleura There is no pericardial effusion. Interpretation Summary The left ventricle is normal in size. Left ventricular systolic function is normal. No regional wall motion abnormalities noted. Ejection Fraction = 60-65%. The right ventricular systolic function is normal. The left atrial size is normal. Right atrial size is normal. There is mild mitral regurgitation. There is mild tricuspid regurgitation. Right ventricular systolic pressure is normal. There is mild aortic sclerosis. There is no pericardial effusion. Previous study is not available for comparison Manoj Garcia MD 05/22/2018 02:41 PM
--- NOTE | 2018-05-22 14:57 | CONSULT ---
Consult Consult Specialty:: general surgery Reason for Consultation:: need muscle biopsy - History of Present Illness Chief Complaint: muscle weakness History of Present Illness: 23 yo female PMH rhabdomyolysis presents with generalized muscle aches. Her mother is present at the bedside with her. Pt reports onset of aching pain 1 week ago. She describes the muscle ache is mostly from her hips to upper body/ chest. Pt reports she had an URI on 05/09/18. Subsequently developed above symptoms. Pt reports she went out drinking 3 days ago, consumed 3-4 drinks which led her to feel worse. Pt therefore went to see her PCP, and outpt CPK level was found to be 30k. Of note, pt was admitted 05/2016 for similar presentation. At that time, no cause was found, pt was managed conservatively and improved. Sickle cell trait was neg, RUPAL elevated in 2017. Pt was advised to follow up with Rheum outpt however pt cannot recall following up. Otherwise, pt denies any chest pain, sob, lightheadedness, seizure, fever/chills, rash, abd pain, n/v/d, dysuria, dark urine, use of herbal supplements, use of illicit drugs, use of dietary supplements, recent trauma, excessive exercise, or recent travel. We were called to assist with obtaining a muscle biopsy. - History Source History Provided By: Patient, Medical Record Limitations to Obtaining History: No Limitations - Past Medical History ...LMP: 05/09/16 ...: No Musculoskeletal: Yes: Other (rhabdomyolysis) - Past Surgical History Past Surgical History: Yes: None - Alcohol/Substance Use Hx Alcohol Use: No History of Substance Use: reports: None - Smoking History Smoking history: Never smoked Have you smoked in the past 12 months: No - Social History Usual Living Arrangement: Alone ADL: Independent Occupation: college student History of Recent Travel: No Home Medications - Allergies Allergies/Adverse Reactions: Allergies Allergy/AdvReac Type Severity Reaction Status Date / Time No Known Allergies Allergy Verified 05/19/18 13:33 - Home Medications Home Medications: Ambulatory Orders NK [No Known Home Medication] 05/20/16 Family Disease History - Family Disease History Family Disease History: Other: Father (healthy), Mother (healthy) Review of Systems - Review of Systems Constitutional: denies: Chills, Fever Eyes: denies: Blind Spots, Recent Change in Vision HENT: denies: Difficult Swallowing, Throat Pain Neck: denies: Decreased ROM, Pain on Movement Cardiovascular: denies: Chest Pain, Palpitations Respiratory: denies: Cough, SOB Gastrointestinal: denies: Abdominal Pain, Nausea Genitourinary: denies: Discharge, Dysuria Breasts: reports: No Symptoms Reported. denies: Pain Musculoskeletal: reports: Extremity Pain, Muscle Weakness Integumentary: denies: Rash, Wound Neurological: denies: Seizure, Syncope Endocrine: denies: Unexplained Weight Gain, Unexplained Weight Loss Hematology/Lymphatic: denies: Easily Bruised, Excessive Bleeding Psychiatric: denies: Anxiety, Depression Physical Exam Vital Signs: Vital Signs Temperature 98.8 F 05/22/18 14:30 Pulse Rate 71 05/22/18 14:30 Respiratory Rate 05/22/18 09:40 Blood Pressure 113/70 05/22/18 14:30 O2 Sat by Pulse Oximetry (%) 95 05/22/18 08:23 Vital Signs Period Temp Pulse Resp BP Sys/Gary Pulse Ox Last 24 Hr 97.8 F-98.8 F 66-79 20-20 109-127/64-75 95-96 Constitutional: Yes: Well Nourished, No Distress, Calm, Thin Eyes: Yes: Conjunctiva Clear, EOM Intact HENT: Yes: Atraumatic, Normocephalic Neck: Yes: Supple, Trachea Midline Cardiovascular: Yes: Regular Rate and Rhythm, S1, S2 Respiratory: Yes: Regular, CTA Bilaterally Gastrointestinal: Yes: Normal Bowel Sounds, Soft. No: Tenderness ...Rectal Exam: Yes: Deferred Renal/: No: CVA Tenderness - Left, CVA Tenderness - Right Breast(s): No: Mass, Nipple Inversion Musculoskeletal: Yes: Muscle Weakness. No: Joint Stiffness, Joint Swelling, Muscle Pain Extremities: No: Cool, Cyanosis Edema: No Peripheral Pulses WNL: Yes Integumentary: No: Incision, Jaundice, Pressure Ulcer Neurological: Yes: Alert, Oriented Psychiatric: Yes: Alert, Oriented Labs: CBC, BMP 05/22/18 06:45 05/22/18 06:45 Problem List - Problems (1) Muscle weakness (generalized) Assessment/Plan: 23 yo female for a Left thigh muscle biopsy NPO and IVF hydration Discussed with patient risks, benefits and alternatives of aforementioned procedure, including but not limited to bleeding, infection, injury to adjacent structures, need for further procedures, ; alternatives include antibiotics, delayed or no surgery - risks of this include failure of nonoperative therapy, sepsis, recurrence, . Patient desires to proceed with operation - will take to OR for above. Informed consent signed for same. Code(s): M62.81 - MUSCLE WEAKNESS (GENERALIZED) (2) Hematuria, microscopic Code(s): R31.2 - OTHER MICROSCOPIC HEMATURIA * DO NOT USE * (3) Rhabdomyolysis Code(s): M62.82 - RHABDOMYOLYSIS Qualifiers: Rhabdomyolysis type: non-traumatic Qualified Code(s): M62.82 - Rhabdomyolysis (4) Transaminitis Code(s): R74.0 - NONSPEC ELEV OF LEVELS OF TRANSAMNS & LACTIC ACID DEHYDRGNSE
--- NOTE | 2018-05-22 17:12 | PN ---
Progress Note, Physician History of Present Illness: Pt seen and examined at bedside. She feels that muscle pain is improving. - Current Medication List Current Medications: Active Medications Sodium Chloride (Normal Saline -) 1,000 mls @ 200 mls/hr IV ASDIR FABRICIO Last Admin: 05/21/18 21:38 Dose: 200 mls/hr - Objective Vital Signs: Vital Signs Temperature 98.8 F 05/22/18 14:30 Pulse Rate 71 05/22/18 14:30 Respiratory Rate 20 05/22/18 09:40 Blood Pressure 113/70 05/22/18 14:30 O2 Sat by Pulse Oximetry (%) 95 05/22/18 08:23 Constitutional: Yes: Calm, Poor Hygeine HENT: Yes: Atraumatic Neck: Yes: Supple Cardiovascular: Yes: S1, S2 Gastrointestinal: Yes: Soft Genitourinary: Yes: WNL Musculoskeletal: Yes: Back Pain Edema: No Neurological: Yes: Oriented Psychiatric: Yes: Oriented Labs: CBC, BMP 05/22/18 06:45 05/22/18 06:45 Problem List - Problems (1) Hematuria, microscopic Code(s): R31.2 - OTHER MICROSCOPIC HEMATURIA * DO NOT USE * (2) Rhabdomyolysis Code(s): M62.82 - RHABDOMYOLYSIS Qualifiers: Rhabdomyolysis type: non-traumatic Qualified Code(s): M62.82 - Rhabdomyolysis (3) Transaminitis Code(s): R74.0 - NONSPEC ELEV OF LEVELS OF TRANSAMNS & LACTIC ACID DEHYDRGNSE Assessment/Plan Current Medications Generic Name Dose Route Start Last Admin Trade Name Freq PRN Reason Stop Dose Admin Sodium Chloride 1,000 mls @ 200 mls/hr 05/19/18 17:45 05/21/18 21:38 Normal Saline - IV 200 mls/hr ASDIR FABRICIO Administration Impression 1. rhabdomyolosis 2. microscopic hematuria 3. hx proteinuria 4. recent viral syndrome 5. hx transaminitis 6. hx of positive dilip Plan - cpk is improving - ua reviewed - monitor lytes - cont fluids - rheum follow up - pt for muscle biopsy
[2018-05-23 02:13] LABS: HEP.C VIRUS AB <0.1 s/co ratio (0.0-0.9)
[2018-05-23] MEDS: SODIUM CHLORIDE 1,000 ML IV SCH ×4 (05:30→15:50)
[2018-05-23 07:54] LABS: BASO % 0.7 % (0-2.0); EOS % 3.8 % (0-4.5); HEMATOCRIT 30.7 % (32.4-45.2); HEMOGLOBIN 10.6 GM/dL (10.7-15.3); LYMPH % 41.1 % (8-40); MCH 31.1 pg (25.7-33.7); MCHC 34.4 g/dl (32.0-36.0); MEAN CELL VOLUME 90.3 fl (80-96); MEAN PLT VOLUME 9.2 fl (7.5-11.1); MONO % 8.6 % (3.8-10.2); NEUT % 45.8 % (42.8-82.8); PLATELET COUNT 310 K/MM3 (134-434); RDW 13.7 % (11.6-15.6); WHITE BLOOD COUNT 4.4 K/mm3 (4.0-10.0)
[2018-05-23 08:48] LABS: ALBUMIN 3.3 g/dl (3.4-5.0); ALK PHOS 48 U/L (45-117); ANION GAP 8 MMOL/L (8-16); BILIRUBIN,TOTAL 0.4 mg/dL (0.2-1); BLOOD UREA NITROGEN 6 mg/dL (7-18); CALCIUM 8.3 mg/dL (8.5-10.1); CHLORIDE 108 mmol/L (98-107); CO2 24 mmol/L (21-32); CREATININE 0.5 mg/dL (0.55-1.3); GLUCOSE,RANDOM 80 mg/dL (74-106); POTASSIUM 3.7 mmol/L (3.5-5.1); SGOT/AST 94 U/L (15-37); SGPT/ALT 91 U/L (13-61); SODIUM 140 mmol/L (136-145); TOT PROT 6.2 g/dl (6.4-8.2)
--- NOTE | 2018-05-23 10:29 | PN ---
Progress Note, Physician Chief Complaint: Pt lying in bed in no acute distress. Reports feeling better. denies any chest pain, sob, n/v/d - Current Medication List Current Medications: Active Medications Sodium Chloride (Normal Saline -) 1,000 mls @ 200 mls/hr IV ASDIR FABRICIO Last Admin: 05/23/18 05:30 Dose: 200 mls/hr - Objective Vital Signs: Vital Signs Temperature 98.6 F 05/23/18 06:00 Pulse Rate 101 H 05/23/18 06:00 Respiratory Rate 20 05/23/18 06:00 Blood Pressure 116/75 05/23/18 06:00 O2 Sat by Pulse Oximetry (%) 97 05/22/18 21:00 Constitutional: Yes: No Distress, Thin Cardiovascular: Yes: WNL, Regular Rate and Rhythm Respiratory: Yes: WNL, Regular, CTA Bilaterally. No: Accessory Muscle Use, SOB , Tachypnea, Wheezes Gastrointestinal: Yes: WNL, Normal Bowel Sounds, Soft. No: Distention, Tenderness Genitourinary: Yes: WNL Musculoskeletal: Yes: WNL Extremities: Yes: WNL Edema: No Neurological: Yes: WNL, Alert, Oriented Psychiatric: Yes: WNL, Alert, Oriented Labs: CBC, BMP 05/23/18 06:00 05/23/18 06:00 Assessment/Plan (1) Rhabdomyolysis Assessment/Plan: CPK improving continue IVF muscle biopsy today echo/abd us unremarkable rheum consult appreciated nephrology following Code(s): M62.82 - RHABDOMYOLYSIS Qualifiers: Rhabdomyolysis type: non-traumatic Qualified Code(s): M62.82 - Rhabdomyolysis (2) Transaminitis Assessment/Plan: improving acute hepatitis panel neg Code(s): R74.0 - NONSPEC ELEV OF LEVELS OF TRANSAMNS & LACTIC ACID DEHYDRGNSE
--- NOTE | 2018-05-23 13:34 | PN ---
Progress Note, Physician History of Present Illness: Pt seen and examined at bedside. She is awake and alert. She denies shortness of breath. - Current Medication List Current Medications: Active Medications Sodium Chloride (Normal Saline -) 1,000 mls @ 200 mls/hr IV ASDIR [facility] Last Admin: 05/23/18 10:48 Dose: 200 mls/hr - Objective Vital Signs: Vital Signs Temperature 98.6 F 05/23/18 06:00 Pulse Rate 87 05/23/18 10:00 Respiratory Rate 18 05/23/18 10:00 Blood Pressure 117/70 05/23/18 10:00 O2 Sat by Pulse Oximetry (%) 97 05/22/18 21:00 Constitutional: Yes: Calm Eyes: Yes: Conjunctiva Clear Cardiovascular: Yes: S1 (.), S2 Respiratory: Yes: CTA Bilaterally Gastrointestinal: Yes: Soft Genitourinary: Yes: WNL Musculoskeletal: Yes: WNL Extremities: Yes: WNL Edema: No Neurological: Yes: Oriented Psychiatric: Yes: Oriented Labs: CBC, BMP 05/23/18 06:00 05/23/18 06:00 Problem List - Problems (1) Hematuria, microscopic Code(s): R31.2 - OTHER MICROSCOPIC HEMATURIA * DO NOT USE * (2) Rhabdomyolysis Code(s): M62.82 - RHABDOMYOLYSIS Qualifiers: Rhabdomyolysis type: non-traumatic Qualified Code(s): M62.82 - Rhabdomyolysis (3) Transaminitis Code(s): R74.0 - NONSPEC ELEV OF LEVELS OF TRANSAMNS & LACTIC ACID DEHYDRGNSE Assessment/Plan Current Medications Generic Name Dose Route Start Last Admin Trade Name Neal PRN Reason Stop Dose Admin Sodium Chloride 1,000 mls @ 200 mls/hr 05/19/18 17:45 05/23/18 10:48 Normal Saline - IV 200 mls/hr ASDIR [facility] Administration Laboratory Tests 05/19/18 05/19/18 05/20/18 20:00 20:00 00:46 Creatine Kinase Urine Protein Negative Urine Blood Negative DILIP Screen Positive H Hepatitis A IgM Ab Hep Bs Antigen Hep B Core IgM Ab Hepatitis C Antibody HIV 1&2 Antibody Screen Negative HIV P24 Antigen Negative 05/20/18 05/20/18 05/23/18 07:45 14:54 06:00 Creatine Kinase 79875 H 6516 H Urine Protein Urine Blood DILIP Screen Hepatitis A IgM Ab Negative Hep Bs Antigen Negative Hep B Core IgM Ab Negative Hepatitis C Antibody <0.1 HIV 1&2 Antibody Screen HIV P24 Antigen Impression 1. rhabdomyolosis 2. microscopic hematuria 3. hx proteinuria 4. recent viral syndrome 5. hx transaminitis 6. hx of positive dilip Plan - cpk cont to improve - repeat labs in am - follow up biopsy - rheum follow up - discussed with medical team
[2018-05-23] MEDS ORDERED: ONDANSETRON 4 MG/2 ML VIAL IVPUSH PRN (13:50)
--- NOTE | 2018-05-24 05:56 | OP ---
Operative Note - Note: Operative Date: 05/24/18 Pre-Operative Diagnosis: rhabdomyolysis and muscular weakness Operation: left thigh muscle biopsy Findings: normal appearing skeletal muscle Post-Operative Diagnosis: Same as Pre-op Surgeon: Deny Whitney Anesthesiologist/PUTTY MIXER: Johny Hilario Anesthesia: Local (1% lindocaine, 0.5% marcaine), MAC Specimens Removed: left quadracep muscle Estimated Blood Loss (mls): 1 Fluid Volume Replaced (mls): 300 Operative Report Dictated: Yes
[2018-05-24] MEDS ORDERED: LIDOCAINE HCL 1%, 10 MG/ML (20ML VIAL) ONE (06:20)
[2018-05-24] MEDS ORDERED: BUPIVACAINE HCL/PF 0.5% (5MG/ML) 10 ML VIAL ONE (06:20)
[2018-05-24] MEDS ORDERED: SUCCINYLCHOLINE CHLORIDE 200 MG/10 ML VIAL ONE (06:54)
[2018-05-24] MEDS ORDERED: PROPOFOL 20 ML ONE ×2 (06:54)
[2018-05-24] MEDS ORDERED: MIDAZOLAM HCL 2 MG/2 ML SINGLE DOSE VIAL ONE (06:54)
[2018-05-24] MEDS ORDERED: ceFAZolin SODIUM 1 GM VIAL ONE (06:54)
[2018-05-24] MEDS ORDERED: SODIUM CHLORIDE 0.9% P/F 10 ML VIAL IJ ONE (06:54)
[2018-05-24] MEDS ORDERED: LIDOCAINE HCL 1%, 10 MG/ML (20ML VIAL) PNB ONE (07:05)
[2018-05-24] MEDS ORDERED: SODIUM CHLORIDE 1,000 ML IV SCH ×3 (07:54→11:49)
[2018-05-24 08:19] VITALS: TEMP 97.6
--- NOTE | 2018-05-24 08:20 | OP ---
DATE OF OPERATION: 05/24/2018 PREOPERATIVE DIAGNOSIS: Rhabdomyolysis, muscle weakness. POSTOPERATIVE DIAGNOSIS: Rhabdomyolysis, muscle weakness. PROCEDURE: Left thigh muscle biopsy. ATTENDING SURGEON: Deny Whitney MD ASSISTANT SCIENTIST: No one. ANESTHESIA: Johny Hilario CRNA ANESTHESIA TYPE: Local with MAC. Local consisted of 1% lidocaine, 0.5% Marcaine, a total of 8 mL given in area block fashion. ESTIMATED BLOOD LOSS: 1 mL. INTRAVENOUS FLUID ADMINISTERED: 300 mL. SPECIMENS SENT: Left quadriceps muscle. BRIEF OPERATIVE FINDINGS: Normal-appearing skeletal muscle, closed in layers fascia to skin. DESCRIPTION OF PROCEDURE: Patient was brought to the operating room, placed in supine position on the operating table. Lower extremities had SCDs placed to compression. Patient was induced with sedation. She received supplemental oxygen, was stable. The area was then prepped and draped in standard surgical fashion. A formal timeout was completed identifying the operative site. We began with inoculation of the area in an area block for a 2-cm incision. This was done, and the incision was carried through with a 15-blade scalpel. It was deepened and went through subcutaneous tissue. Care was taken to dissect down to the fascia of the quadriceps muscle laterally and proximally in the thigh. This was done, and then with a self-retaining retractor in place, the skeletal muscle was exposed and then taken in a swath of approximately 2 cm. It was then taken with scissors to preserve its normal anatomy without any thermal trauma. Once complete, it was passed off as specimen in sterile saline, and then it was sent for pathologic diagnosis. The remaining muscle defect was hemostasis obtained using Bovie cautery. The fascia edges were then approximated with a [id number] 3-0 Vicryl. The area was irrigated, and then the skin was closed in layers, deep dermals with 3-0 Vicryl, and then 4-0 Vicryl running subcuticular fashion. Patient was awoken from general anesthesia, having tolerated the procedure well. Sterile dressings including Steri-Strips, gauze, sponge, and Tegaderm were placed. She returned to recovery in stable condition, was stable throughout the procedure. MD KRISTY Richards/[id number]
[2018-05-24] MEDS ORDERED: ONDANSETRON 4 MG/2 ML VIAL IVPUSH PRN (08:43)
[2018-05-24 09:10] LABS: BASO % 0.7 % (0-2.0); EOS % 3.2 % (0-4.5); HEMATOCRIT 32.4 % (32.4-45.2); HEMOGLOBIN 10.9 GM/dL (10.7-15.3); LYMPH % 28.5 % (8-40); MCH 30.7 pg (25.7-33.7); MCHC 33.6 g/dl (32.0-36.0); MEAN CELL VOLUME 91.3 fl (80-96); MEAN PLT VOLUME 8.3 fl (7.5-11.1); MONO % 6.2 % (3.8-10.2); NEUT % 61.4 % (42.8-82.8); PLATELET COUNT 304 K/MM3 (134-434); RBC 3.54 M/mm3 (3.60-5.2); WHITE BLOOD COUNT 3.3 K/mm3 (4.0-10.0)
[2018-05-24 11:29] LABS: ALBUMIN 3.4 g/dl (3.4-5.0); ALK PHOS 50 U/L (45-117); ANION GAP 8 MMOL/L (8-16); BILIRUBIN,TOTAL 0.2 mg/dL (0.2-1); BLOOD UREA NITROGEN 6 mg/dL (7-18); CALCIUM 8.8 mg/dL (8.5-10.1); CHLORIDE 108 mmol/L (98-107); CO2 26 mmol/L (21-32); CREATININE 0.6 mg/dL (0.55-1.3); GLUCOSE,RANDOM 101 mg/dL (74-106); MAGNESIUM 1.8 mg/dL (1.8-2.4); PHOSPHOROUS 3.9 mg/dL (2.5-4.9); SGOT/AST 67 U/L (15-37); SGPT/ALT 86 U/L (13-61); SODIUM 142 mmol/L (136-145); TOT PROT 6.4 g/dl (6.4-8.2)
[2018-05-24 11:41] VITALS: BP 106/64; PULSE 75
--- NOTE | 2018-05-24 12:02 | PN ---
Progress Note, Physician History of Present Illness: Pt seen and examined at bedside. She is awake and alert. She had the muscle biopsy. She denies shortness of breath or hematuria. She is eager to go home. - Current Medication List Current Medications: Active Medications Sodium Chloride (Normal Saline -) 1,000 mls @ 200 mls/hr IV ASDIR FABRICIO - Objective Vital Signs: Vital Signs Temperature 97.6 F 05/24/18 08:17 Pulse Rate 75 05/24/18 11:00 Respiratory Rate 18 05/24/18 11:00 Blood Pressure 106/64 05/24/18 11:00 O2 Sat by Pulse Oximetry (%) 98 05/24/18 09:00 Constitutional: Yes: Calm Eyes: Yes: Conjunctiva Clear HENT: Yes: Atraumatic Neck: Yes: Supple Cardiovascular: Yes: S1, S2 Respiratory: Yes: CTA Bilaterally Gastrointestinal: Yes: Soft Genitourinary: Yes: WNL Musculoskeletal: Yes: WNL Edema: No Neurological: Yes: Oriented Psychiatric: Yes: Oriented Labs: CBC, BMP 05/24/18 09:00 05/24/18 09:00 Problem List - Problems (1) Hematuria, microscopic Code(s): R31.2 - OTHER MICROSCOPIC HEMATURIA * DO NOT USE * (2) Rhabdomyolysis Code(s): M62.82 - RHABDOMYOLYSIS Qualifiers: Rhabdomyolysis type: non-traumatic Qualified Code(s): M62.82 - Rhabdomyolysis (3) Transaminitis Code(s): R74.0 - NONSPEC ELEV OF LEVELS OF TRANSAMNS & LACTIC ACID DEHYDRGNSE Assessment/Plan Current Medications Generic Name Dose Route Start Last Admin Trade Name Neal PRN Reason Stop Dose Admin Sodium Chloride 1,000 mls @ 200 mls/hr 05/24/18 11:49 Normal Saline - IV ASDIR FABRICIO Impression 1. rhabdomyolosis 2. hx positive dilip 3. transaminitis 4. recent viral syndrome Plan - cont fluids - cpk is improving - pt will need to stay hydrated if she leaves and to follow with pmd in 2 days to check cpk - will need to follow with rheum for pos dilip - will need to follow muscle biopsy - pt eager to go home - refrain from etoh - discussed with medical team
--- NOTE | 2018-05-24 12:05 | DS ---
Physical Examination Vital Signs: Vital Signs Temperature 97.6 F 05/24/18 08:17 Pulse Rate 75 05/24/18 11:00 Respiratory Rate 18 05/24/18 11:00 Blood Pressure 106/64 05/24/18 11:00 O2 Sat by Pulse Oximetry (%) 98 05/24/18 09:00 Constitutional: Yes: Well Nourished, No Distress, Calm Cardiovascular: Yes: Regular Rate and Rhythm Respiratory: Yes: WNL, Regular, CTA Bilaterally. No: Accessory Muscle Use, SOB , Tachypnea, Wheezes Gastrointestinal: Yes: WNL, Normal Bowel Sounds, Soft. No: Distention, Tenderness Renal/: Yes: WNL Edema: No Neurological: Yes: WNL, Alert, Oriented Psychiatric: Yes: WNL, Alert, Oriented Labs: CBC, BMP 05/24/18 09:00 05/24/18 09:00 Discharge Summary Reason For Visit: RHABDOMYOLYSIS Current Active Problems Muscle weakness (generalized) (Acute) Hospital Course: 23 year old female pmh of rhabdomyolysis admitted for recurrent rhabdomyolysis. Pt developed muscle aches 1 week ago exacerbated by alcohol intake. Pt clinically improved with IVF and cpk <5000 at the time of discharge. RUPAL+, however no other identifiable etiology, case discussed w/ rheum, no further intervention regarding RUPAL. S/p muscle biopsy, f/u outpt for result. Pt is otherwise doing well, advised to follow up in 2 days w/ PCP to repeat labs. Advise outpt rheum f/u. Pt is medically stable for discharge home. 32 minutes spent in discharge planning Condition: Fair - Instructions Diet, Activity, Other Instructions: Postoperative instructions: You had a left thigh muscle biopsy on 05/24/[address] Deny Whitney of [facility]. Activity: Resume your usual activities gradually, but no heavy exertion or lifting more than 10-15 pounds for 4-6 weeks. Remove dressings 48 hours after surgery, if they are not already off. You may shower daily starting then, just pat the incision areas dry. No bath or swimming until skin incisions have healed. Teresita should not need to be recovered with any dressings, unless you have been told otherwise. Eat lightly at first, but advance to your usual diet as tolerated. Pain: For pain, you may use and alternate Tylenol (acetaminophen) 1-2 pills and/ or ibuprofen 200 mg (1-3 pills) every 6 hours each as needed; this means that you can take one OR the other at 3-hour intervals. If you are prescribed a Tylenol/narcotic combination for severe pain, use it instead of plain Tylenol as needed and switch back when your pain starts decreasing. Do not take more than 4000 mg of acetaminophen in a day. Take medications as prescribed or indicated on the labeling. Follow-up: Call Dr. Whitney' office at [phone] to make your postop appointment (Tuesday in approximately 2 weeks after surgery as advised). Clinic is held in the [facility] on the first floor of [facility]. Call the office if you have: * increasing pain not responsive to pain medication * fever of 101F or higher * unusual or increasing bleeding or drainage from wounds * increasing redness or swelling at wound sites Also, see your primary medical doctor within 1-2 weeks DRINK ATLEAST 3L FLUIDS/DAY AVOID ALCOHOL, EXCESSIVE EXERCISE REPEAT CPK, BMP ON TUESDAY WITH Referrals: Manuel Espinoza MD [Primary Care Provider] - 1 Week Travis Velasquez MD [Staff Physician] - 1 Week Deny Whitney MD [Staff Physician] - 2 Weeks Disposition: HOME - Home Medications Comprehensive Discharge Medication List: Ambulatory Orders NK [No Known Home Medication] 05/20/16
[2018-05-25 04:24] LABS: SERUM IRON SATURATION 16 % (15-55); TOTAL IRON BINDING CAPACITY 307 ug/dL (250-450); UIBC 258 ug/dL (131-425)
--- NOTE | 2018-06-02 20:27 | PATH ---
Surgical Pathology Report Patient Name: FRANKLIN LOMELI Med. Rec. #: [id number] /Age/Gender: 1995 (Age: 23) / F Account: [id number] Location: [address] [place] [address]/[facility] Taken: 05/24/2018 Received: 05/24/2018 Reported: 06/02/2018 Physicians: ANNALISE Pablo Specimen(s) Received MUSCLE BIOPSY Clinical History Left leg weakness, multiple episodes of rhabdomyolysis, girdle weakness, rule out neuromuscular versus myopathy Final Diagnosis MUSCLE, LEFT QUADRICEPS, BIOPSY: SKELETAL MUSCLE SHOWING SCATTERED ATROPHIC FIBERS, NON-SPECIFIC (SEE COMMENT). Comment: This biopsy shows a relatively small portion of skeletal muscle subjacent to the fascia and epimysium, and the lytic changes limits our interpretation of certain histochemical and immunohistochemical staining (see microscopic description). The muscle reveals no active myonecrosis, regeneration, or inflammation, while scattered atrophic fibers are encountered. The distribution pattern of atrophic fibers is non-specific for further characterization of the disease. This case was sent for consultation and work-up to Dr. Man Lezama from [place], [place], the diagnosis reflects her opinion ([id number]). See [facility] report for additional details ([id number]). Electronically Signed Marianne Fisher M.D. Gross Description Received fresh labeled "muscle left leg," is a 2.0 cm in length x 0.9 cm in diameter red-brown, cylindrical portion of muscle. The specimen is divided, placed into saline soaked gauze, formalin and glutaraldehyde. The specimen is sent to [facility] for further studies. /05/24/2018
== END 2018-05-24 14:04 | disposition home or self-care (01) | DRG 317 ==
LOC: JER 13:24 → SUPCPDRO 13:24 → JERBED 17:09 → J6S 23:21
PROVIDERS: ADMIT Internal Medicine; ATTEND Nurse Practitioner Family
PROC: 0KB Muscles, Excision (ICD-10-PCS; principal; 2018-05-24 07:00)
DX: M62.82 Rhabdomyolysis (principal); M79.10 Myalgia, unspecified site; R74.0 Nonspecific elevation of levels of transaminase and lactic acid dehydrogenase [LDH]; R31.9 Hematuria, unspecified; M62.81 Muscle weakness (generalized)
CPT/HCPCS: 36415; 76705-TC; 80048; 80053; 80074; 80076; 80307; 81003; 82550; 82553; 82570; 82607; 82746; 83540; 83550; 83735; 84100; 84300; 84443; 84484; 84703; 85025; 85044; 85651; 86038; 86140; 86658; 86663; 87040; 87086; 87389; 88300-TC; 93005; 93010; 93306-TC; 94760; 99283-25; J7030

== ENCOUNTER 2020-08-06 13:54 | Inpatient (IN) | payer OTHER ==
[2020-08-06] MEDS ORDERED: ACETAMINOPHEN 1000 MG/100 ML VIAL (NON FORMULARY) IVPB ONE (14:03)
[2020-08-06] MEDS ORDERED: SODIUM CHLORIDE 0.9% 500 ML INFUS.BAG IV ONE ×2 (14:03→16:45)
[2020-08-06] MEDS ORDERED: ACETAMINOPHEN INJECTION 100 ML IVPB ONE (14:36)
[2020-08-06 14:45] LABS: BASO % 0.5 % (0-2.0); EOS % 0.7 % (0-4.5); HEMATOCRIT 36.4 % (32.4-45.2); HEMOGLOBIN 12.3 GM/dL (10.7-15.3); LYMPH % 28.7 % (8-40); MCHC 33.9 g/dl (32.0-36.0); MEAN CELL VOLUME 91.5 fl (80-96); MEAN PLT VOLUME 8.7 fl (7.5-11.1); MONO % 9.9 % (3.8-10.2); NEUT % 60.2 % (42.8-82.8); PLATELET COUNT 343 K/MM3 (134-434); RBC 3.97 M/mm3 (3.60-5.2); RDW 13.6 % (11.6-15.6); WHITE BLOOD COUNT 4.6 K/mm3 (4.0-10.0)
[2020-08-06 14:47] LABS: EPI CELLS 10 /uL (0-25.1); HYALINE CASTS 1 /uL (0-3.1); URINE APPEARANCE CLEAR; URINE BACTERIA 204 /uL (0-1359); URINE BILIRUBIN NEGATIVE (NEGATIVE); URINE COLOR YELLOW; URINE GLUCOSE (UA) NEGATIVE (NEGATIVE); URINE KETONE NEGATIVE (NEGATIVE); URINE LEUK ESTERASE NEGATIVE (NEGATIVE); URINE NITRITE NEGATIVE (NEGATIVE); URINE PROTEIN 1+ (NEGATIVE); URINE RBC 7 /uL (0-23.9); URINE UROBILINOGEN 0.2 mg/dL (0.2-1.0)
[2020-08-06 15:11] LABS: CHLORIDE 103 mmol/L (98-107); POTASSIUM 4.1 mmol/L (3.5-5.1); SODIUM 136 mmol/L (136-145)
[2020-08-06 15:13] LABS: CALCIUM 9.9 mg/dL (8.5-10.1)
[2020-08-06 15:14] LABS: ALBUMIN 3.8 g/dl (3.4-5.0); ANION GAP 5 MMOL/L (8-16); BLOOD UREA NITROGEN 9.3 mg/dL (7-18); CO2 28 mmol/L (21-32); GLUCOSE,RANDOM 114 mg/dL (74-106)
[2020-08-06 15:17] LABS: CREATININE 0.7 mg/dL (0.55-1.3); SGOT/AST 460 U/L (15-37); SGPT/ALT 173 U/L (13-61)
[2020-08-06 15:19] LABS: BILIRUBIN,TOTAL 0.5 mg/dL (0.2-1); TOT PROT 7.5 g/dl (6.4-8.2)
[2020-08-06 15:20] LABS: ALK PHOS 53 U/L (45-117)
[2020-08-06] MEDS ORDERED: ACETAMINOPHEN 325 MG TABLET (FP) PO PRN (18:10)
[2020-08-06] MEDS ORDERED: SODIUM CHLORIDE 1,000 ML IV SCH ×2 (18:15→19:24)
[2020-08-06 20:50] LABS: METHADONE, UR NEGATIVE ng/ml (CUTOFF=300); OPIATES, URI NEGATIVE ng/ml (CUTOFF=300); URINE BENZODIAZEPINES NEGATIVE ng/ml (CUTOFF=200)
[2020-08-06 20:51] LABS: PHENCYCLIDINE,URINE NEGATIVE ng/ml (CUTOFF=25)
[2020-08-06 20:53] LABS: COCAINE, UR NEGATIVE ng/ml (CUTOFF=300); URINE AMPHETAMINES NEGATIVE ng/ml (CUTOFF=500); URINE BARBITURATES NEGATIVE ng/ml (CUTOFF=200)
[2020-08-07 06:37] LABS: BASO % 0.6 % (0-2.0); EOS % 2.1 % (0-4.5); HEMATOCRIT 31.2 % (32.4-45.2); HEMOGLOBIN 10.4 GM/dL (10.7-15.3); LYMPH % 30.2 % (8-40); MCHC 33.5 g/dl (32.0-36.0); MEAN CELL VOLUME 92.5 fl (80-96); MEAN PLT VOLUME 9.3 fl (7.5-11.1); NEUT % 58.1 % (42.8-82.8); PLATELET COUNT 286 K/MM3 (134-434); RBC 3.37 M/mm3 (3.60-5.2); RDW 13.6 % (11.6-15.6); WHITE BLOOD COUNT 5.6 K/mm3 (4.0-10.0)
[2020-08-07 06:53] LABS: CHLORIDE 108 mmol/L (98-107); SODIUM 138 mmol/L (136-145)
[2020-08-07 06:57] LABS: ALBUMIN 3.1 g/dl (3.4-5.0); ANION GAP 5 MMOL/L (8-16); BLOOD UREA NITROGEN 6.7 mg/dL (7-18); CO2 25 mmol/L (21-32); GLUCOSE,RANDOM 90 mg/dL (74-106)
[2020-08-07 07:00] LABS: CREATININE 0.5 mg/dL (0.55-1.3); PHOSPHOROUS 3.8 mg/dL (2.5-4.9); SGOT/AST 419 U/L (15-37); SGPT/ALT 170 U/L (13-61)
[2020-08-07 07:01] LABS: BILIRUBIN,TOTAL 0.5 mg/dL (0.2-1); TOT PROT 5.9 g/dl (6.4-8.2)
[2020-08-07 07:02] LABS: ALK PHOS 40 U/L (45-117)
[2020-08-07 07:03] LABS: LDH 989 U/L (84-246)
[2020-08-07] MEDS: SODIUM CHLORIDE 1,000 ML IV SCH ×3 (09:55→20:17)
[2020-08-07 13:20] VITALS: BMI 20.7
[2020-08-08] MEDS: SODIUM CHLORIDE 1,000 ML IV SCH ×6 (00:27→21:43)
[2020-08-08 07:53] LABS: HEMATOCRIT 30.3 % (32.4-45.2); HEMOGLOBIN 10.3 GM/dL (10.7-15.3); MCH 31.4 pg (25.7-33.7); MCHC 34.1 g/dl (32.0-36.0); MEAN PLT VOLUME 8.9 fl (7.5-11.1); PLATELET COUNT 286 K/MM3 (134-434); RBC 3.29 M/mm3 (3.60-5.2); RDW 13.4 % (11.6-15.6); WHITE BLOOD COUNT 4.3 K/mm3 (4.0-10.0)
[2020-08-08 08:05] LABS: CHLORIDE 108 mmol/L (98-107); POTASSIUM 3.8 mmol/L (3.5-5.1); SODIUM 139 mmol/L (136-145)
[2020-08-08 08:07] LABS: ANION GAP 5 MMOL/L (8-16); CO2 26 mmol/L (21-32)
[2020-08-08 08:09] LABS: ALBUMIN 3.1 g/dl (3.4-5.0); BLOOD UREA NITROGEN 7.9 mg/dL (7-18)
[2020-08-08 08:11] LABS: BILIRUBIN,TOTAL 0.6 mg/dL (0.2-1); SGPT/ALT 175 U/L (13-61)
[2020-08-08 08:12] LABS: ALK PHOS 40 U/L (45-117); CREATININE 0.5 mg/dL (0.55-1.3); GLUCOSE,RANDOM 71 mg/dL (74-106); SGOT/AST 352 U/L (15-37)
[2020-08-08 08:13] LABS: CALCIUM 9.1 mg/dL (8.5-10.1)
[2020-08-09] MEDS: SODIUM CHLORIDE 1,000 ML IV SCH ×2 (03:38→10:17)
[2020-08-09 08:07] LABS: HEMATOCRIT 28.2 % (32.4-45.2); HEMOGLOBIN 9.5 GM/dL (10.7-15.3); MCH 30.9 pg (25.7-33.7); MCHC 33.7 g/dl (32.0-36.0); MEAN CELL VOLUME 91.8 fl (80-96); PLATELET COUNT 266 K/MM3 (134-434); RBC 3.07 M/mm3 (3.60-5.2); RDW 13.7 % (11.6-15.6); WHITE BLOOD COUNT 3.5 K/mm3 (4.0-10.0)
[2020-08-09 08:10] LABS: POTASSIUM 3.8 mmol/L (3.5-5.1)
[2020-08-09 08:16] LABS: CALCIUM 8.5 mg/dL (8.5-10.1)
[2020-08-09 08:17] LABS: ALBUMIN 3.1 g/dl (3.4-5.0); BLOOD UREA NITROGEN 6.5 mg/dL (7-18)
[2020-08-09 08:19] LABS: BILIRUBIN,TOTAL 0.6 mg/dL (0.2-1)
[2020-08-09 08:20] LABS: CREATININE 0.5 mg/dL (0.55-1.3); TOT PROT 5.8 g/dl (6.4-8.2)
[2020-08-09] MEDS ORDERED: SODIUM CHLORIDE 1,000 ML IV SCH (10:24)
[2020-08-09] MEDS ORDERED: IBUPROFEN 200 MG TABLET PO ONE (22:44)
[2020-08-10] MEDS ORDERED: BENZOCAINE/MENTH/CETYLPYRD CL 1 EACH LOZENGE MM PRN (04:51)
[2020-08-10 08:38] LABS: HEMATOCRIT 29.2 % (32.4-45.2); HEMOGLOBIN 9.9 GM/dL (10.7-15.3); MCH 31.3 pg (25.7-33.7); MCHC 33.9 g/dl (32.0-36.0); MEAN CELL VOLUME 92.4 fl (80-96); MEAN PLT VOLUME 9.3 fl (7.5-11.1); PLATELET COUNT 277 K/MM3 (134-434); RBC 3.17 M/mm3 (3.60-5.2); RDW 13.6 % (11.6-15.6); WHITE BLOOD COUNT 3.6 K/mm3 (4.0-10.0)
[2020-08-10 08:46] LABS: POTASSIUM 3.7 mmol/L (3.5-5.1)
[2020-08-10 08:50] LABS: BLOOD UREA NITROGEN 5.8 mg/dL (7-18); CALCIUM 8.8 mg/dL (8.5-10.1)
[2020-08-10 08:51] LABS: ALBUMIN 3.4 g/dl (3.4-5.0)
[2020-08-10 08:54] LABS: CREATININE 0.5 mg/dL (0.55-1.3)
[2020-08-10 08:55] LABS: BILIRUBIN,TOTAL 0.6 mg/dL (0.2-1); TOT PROT 6.3 g/dl (6.4-8.2)
[2020-08-10 13:55] VITALS: BP 105/59; PULSE 87; TEMP 98.9
== END 2020-08-10 11:58 | disposition home or self-care (01) | DRG 351 ==
LOC: JER 13:54 → JERBED 18:09 → J7W 08-07 12:32
PROVIDERS: ADMIT Internal Medicine; ATTEND Internal Medicine
DX: M62.82 Rhabdomyolysis (principal); Z86.16 Personal history of COVID-19
CPT/HCPCS: 36415; 71045-TC-FY; 76705-TC; 80053; 80307; 81003; 82550; 82553; 82728; 83036; 83605; 83615; 83735; 84100; 84443; 84703; 85025; 85027; 85379; 86140; 86769; 87040; 87086; 87804; 93005; 93010; 99285-25; C9803; J0131; U0003; U0005

== ENCOUNTER 2022-06-08 09:46 | Emergency (ER) | payer OTHER ==
[2022-06-08 09:55] VITALS: TEMP 98.4
[2022-06-08 12:26] LABS: BASO % 0.7 % (0-2.0); EOS % 0.5 % (0-4.5); HEMATOCRIT 34.8 % (32.4-45.2); HEMOGLOBIN 11.4 GM/dL (10.7-15.3); LYMPH % 40.5 % (8-40); MCH 30.1 pg (25.7-33.7); MCHC 32.7 g/dl (32.0-36.0); MEAN CELL VOLUME 92.2 fl (80-96); MEAN PLT VOLUME 8.5 fl (7.5-11.1); NEUT % 50.3 % (42.8-82.8); PLATELET COUNT 261 10^3/uL (134-434); RBC 3.77 M/mm3 (3.60-5.2); RDW 13.7 % (11.6-15.6); WHITE BLOOD COUNT 3.5 K/mm3 (4.0-10.0)
[2022-06-08 12:48] LABS: URINE APPEARANCE CLEAR; URINE BILIRUBIN NEGATIVE (NEGATIVE); URINE COLOR YELLOW; URINE GLUCOSE (UA) NEGATIVE (NEGATIVE); URINE KETONE NEGATIVE (NEGATIVE); URINE LEUK ESTERASE NEGATIVE (NEGATIVE); URINE NITRITE NEGATIVE (NEGATIVE); URINE PROTEIN NEGATIVE (NEGATIVE); URINE UROBILINOGEN 0.2 mg/dL (0.2-1.0)
[2022-06-08 12:49] LABS: CALCIUM 9.2 mg/dL (8.5-10.1)
[2022-06-08 12:50] LABS: ALBUMIN 3.8 g/dl (3.4-5.0); BLOOD UREA NITROGEN 8.3 mg/dL (7-18); MAGNESIUM 2.1 mg/dL (1.8-2.4)
[2022-06-08 12:51] LABS: HCG,QUALITATIVE URINE Negative
[2022-06-08 12:53] LABS: CREATININE 0.7 mg/dL (0.55-1.3); PHOSPHOROUS 3.4 mg/dL (2.5-4.9)
[2022-06-08 12:54] LABS: BILIRUBIN,TOTAL 0.7 mg/dL (0.2-1)
[2022-06-08 13:57] VITALS: BP 118/70; PULSE 68; RESP 16
== END 2022-06-08 14:01 | disposition home or self-care (01) ==
LOC: JER 09:46
DX: R53.1 Weakness (principal)
CPT/HCPCS: 36415; 80053; 81003; 82330; 82550; 83735; 84100; 84484; 84703; 85025; 87086; 93005; 93010; 99284-25